=== PATIENT | male | born 2000 | race African-American/Black ===

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

== ENCOUNTER 2024-01-23 13:21 | Emergency (ER) | payer MEDICAID ==
[~2024-01-23] VITALS: Ht 167.6 cm; Wt 56.0 kg
[2024-01-23 13:23] VITALS: BP 147/83; PULSE 100; RESP 18; TEMP 98.6; O2SAT 100
[2024-01-23] MEDS ORDERED: ONDANSETRON 4MG ODT PO ONE (14:00)
[2024-01-23] MEDS ORDERED: DEXAMETHASONE 1MG TABLET PO ONE (14:00)
[2024-01-23] MEDS ORDERED: DIPHENHYDRAMINE 50MG/ML VIAL IV ONE (14:00)
[2024-01-23] MEDS ORDERED: FAMOTIDINE 20MG TABLET PO ONE (14:00)
[2024-01-23] MEDS ORDERED: EPINEPHRINE 1:1000 1 MG/ML AMP IM ONE (14:00)
[2024-01-23] MEDS ORDERED: DEXAMETHASONE 2MG TABLET PO NR (15:15)
[2024-01-23] MEDS ORDERED: FAMOTIDINE 20MG TABLET PO NR (16:15)
[2024-01-23] MEDS ORDERED: ONDANSETRON 4MG ODT PO NR (16:15)
[2024-01-23] MEDS ORDERED: EPINEPHRINE 1:1000 1 MG/ML AMP IM NR (16:15)
== END 2024-01-23 16:02 | disposition left against medical advice (07) ==
LOC: ER 13:21
DX: T78.40XA Allergy, unspecified, initial encounter (principal); F12.10 Cannabis abuse, uncomplicated; J45.909 Unspecified asthma, uncomplicated; X58.XXXA Exposure to other specified factors, initial encounter
CPT/HCPCS: 99283; Z7610; J8540